=== PATIENT | female | born 1985 | race Caucasian/White ===

== ENCOUNTER 2021-08-10 10:18 | Inpatient (IN) ==
[2021-08-10] MEDS ORDERED: Lactated Ringers 1000 ml BAG 1,000 ML IV ONE ×2 (11:18→17:17)
[2021-08-10] MEDS ORDERED: Buffered Lidocaine 1% SYRIN 1 ml INTRADERM ONE (11:18)
[2021-08-10 11:47] LABS: ABS Eosinophils 0.1 10^3/ul (0-0.6); ABS Lymphocytes 1.8 10^3/ul (1.0-4.8); ABS Monocytes 0.8 10^3/ul (0-0.8); Eosinophil % 0.7 %; Hematocrit 36 % (35-47); Hemoglobin 12.3 g/dL (12.0-16.0); Lymphocyte % 15.3 %; Mean Corpuscular HGB Conc 34 g/dL (31-36); Mean Corpuscular Hemoglobin 29 pg (27-31); Mean Corpuscular Volume 86 fL (80-97); Mean Platelet Volume 6.7 fL (7.4-10.4); Platelet Count 226 10^3/uL (150-450); Red Blood Count 4.19 10^6 /uL (3.70-4.87); Red Cell Distribution Width 13 % (10-15); White Blood Count 11.7 10^3/uL (3.5-10.8)
[2021-08-10] MEDS ORDERED: Lactated Ringers 1000 ml BAG 1,000 ML IV SCH ×3 (12:00→19:00)
[2021-08-10] MEDS ORDERED: Oxytocin in LR 20 UNITS/1,000 ML BAG IVPB SCH ×2 (12:00→19:00)
[2021-08-10 12:13] LABS: Urine Benzodiazepine Screen None Detected (None Detect); Urine Cannabinoids Screen None Detected (None Detect); Urine Opiates Screen None Detected (None Detect)
[2021-08-10] MEDS ORDERED: OBEPIDURAL (200 ML) 200 ML EPIDURAL ONE (16:24)
[2021-08-10] MEDS ORDERED: Sodium Citrate/Citric Acid LIQ 15 ML UDC PO PRN (17:17)
[2021-08-10] MEDS ORDERED: EPHEDrine (Pressors) 50 MG/ML VIAL IV PUSH PRN ×2 (17:17)
[2021-08-10] MEDS ORDERED: Lactated Ringers 1000 ml BAG 500 ML IV PRN ×2 (17:17)
[2021-08-10] MEDS ORDERED: Phenylephrine 40 mcg/mL 10mL (400mcg) SYRINGE IV PUSH PRN ×2 (17:17)
[2021-08-10] MEDS ORDERED: OBEPIDURAL (200 ML) 200 ML EPIDURAL SCH (18:00)
[2021-08-10] MEDS ORDERED: Measles, Mumps,Rubella VACC 0.5 ML/VIAL SUBCUT ONE (18:49)
[2021-08-10] MEDS ORDERED: Witch Hazel PAD JAR TOPICAL PRN (18:49)
[2021-08-10] MEDS ORDERED: Dibucaine 1% OINT 28.35 GM TUBE PR PRN (18:49)
[2021-08-10 19:54] LABS: Urine Appearance Cloudy; Urine Bilirubin Negative (Negative); Urine Blood 3+ (Negative); Urine Color Yellow; Urine Glucose Negative (Negative); Urine Ketones Negative (Negative); Urine Nitrite Negative (Negative); Urine Protein 1+(30 mg/dL) (Negative); Urine Specific Gravity 1.023 (1.002-1.030); Urine Urobilinogen Negative (Negative)
[2021-08-10 19:59] LABS: Urine Bacteria Absent (Absent); Urine Red Blood Cell 3+(>10/hpf) (Absent); Urine Squamous Epithelial Cell Present (Absent); Urine White Blood Cell Absent (Absent)
[2021-08-10] MEDS ORDERED: Lidocaine 1% MPF 5 ML VIAL ONE (22:11)
[2021-08-10] MEDS ORDERED: Phenylephrine 40 mcg/mL 10mL (400mcg) SYRINGE ONE (22:31)
[2021-08-11 06:49] LABS: ABS Eosinophils 0.1 10^3/ul (0-0.6); ABS Lymphocytes 2.4 10^3/ul (1.0-4.8); ABS Monocytes 0.8 10^3/ul (0-0.8); ABS Neutrophils 10.3 10^3/ul (1.5-7.7); Eosinophil % 0.4 %; Hematocrit 29 % (35-47); Hemoglobin 9.7 g/dL (12.0-16.0); Lymphocyte % 17.7 %; Mean Corpuscular HGB Conc 34 g/dL (31-36); Mean Corpuscular Hemoglobin 29 pg (27-31); Mean Corpuscular Volume 87 fL (80-97); Mean Platelet Volume 6.7 fL (7.4-10.4); Platelet Count 186 10^3/uL (150-450); Red Cell Distribution Width 13 % (10-15); White Blood Count 13.7 10^3/uL (3.5-10.8)
[2021-08-12 09:15] VITALS: BP 135/67
== END 2021-08-12 11:40 | disposition home or self-care (01) | DRG 560 ==
LOC: MCHOBOUT 10:18 → MCHOB 11:16
PROVIDERS: ADMIT Midwife; ATTEND Midwife